=== PATIENT | male | born 1965 | race Caucasian/White ===

== ENCOUNTER 2016-06-08 08:51 | Outpatient (CLI) | payer OTHER | END 2016-06-08 08:52 | disposition home or self-care (01) | DX: M50.321 Other cervical disc degeneration at C4-C5 level (principal); R00.0 Tachycardia, unspecified; R35.0 Frequency of micturition; C81.90 Hodgkin lymphoma, unspecified, unspecified site ==

== ENCOUNTER 2020-03-05 11:10 | Outpatient (CLI) | payer OTHER ==
[2020-03-05 11:46] LABS: BUN - BLOOD UREA NITROGEN 12 mg/dL (6-20); CALCIUM 8.8 mg/dL (8.5-10.3); CARBON DIOXIDE - CO2 27 mmol/L (21-32); CHLORIDE 97 mmol/L (101-111); CHOL/HDL RATIO 3.9 (<5.0); CHOLESTEROL 132 mg/dL; CREATININE 0.7 mg/dL (0.6-1.2); GLUCOSE 98 mg/dL (70-100); HDL CHOLESTEROL 34 mg/dL; LDL CHOLESTEROL,CALCULATED 81 mg/dL; LDL/HDL RATIO 2.4 (<3.6); SODIUM 136 mmol/L (135-145); VLDL CHOLESTEROL 17 mg/dL
[2020-03-06 12:31] LABS: HEPATITIS C ANTIBODY NON-REACTIVE (NON-REACTIVE)
== END 2020-03-05 11:11 | disposition home or self-care (01) ==
LOC: LAB 11:10
PROVIDERS: ATTEND Internal Medicine
DX: I10 Essential (primary) hypertension (principal); Z13.6 Encounter for screening for cardiovascular disorders; Z11.59 Encounter for screening for other viral diseases
CPT/HCPCS: 36415; 80048; 80061; 83721; 86803

== ENCOUNTER 2020-03-26 11:57 | Outpatient (CLI) | payer OTHER ==
[2020-03-26 12:33] LABS: CREATININE 0.7 mg/dL (0.6-1.2)
== END 2020-03-26 11:58 | disposition home or self-care (01) ==
LOC: LAB 11:57
PROVIDERS: ATTEND Internal Medicine
DX: I10 Essential (primary) hypertension (principal)
CPT/HCPCS: 36415; 80048

== ENCOUNTER 2020-03-27 11:03 | Outpatient (CLI) | payer OTHER ==
--- NOTE | 2020-03-27 16:05 | XRAY Report ---
PROCEDURE: Lumbar Spine 2 View INDICATIONS: LOW BACK PAIN TECHNIQUE: 2 views of the lumbar spine were acquired. COMPARISON: None. FINDINGS: Bones: 5 [id number]-[id number]-dotoboj vertebrae are present. There is straightening of normal lumbar lordosis. M oderate multilevel lumbar spondylitic changes throughout the imaged spine with moderate mid and lower lumbar facet arthropathy. No acute vertebral body compression fractures. No suspicious bony lesions . Soft tissues: Overlying bowel gas pattern is normal. No suspicious soft tissue calcifications. IMPRESSION: Lumbar spine without acute radiographic abnormalities. Multilevel lumbar spondylosis. Straightening o f lumbar lordosis likely related to patient positioning and/or concurrent muscle spasms Reviewed by: Chaka Fowler MD on 03/27/2020 3:03 PM [facility] Approved by: Chaka Fowler MD on 03/27/2020 3:03 PM [facility] Station ID: [id number]
== END 2020-03-27 11:04 | disposition home or self-care (01) ==
LOC: DI 11:03
PROVIDERS: ATTEND Internal Medicine
DX: M47.816 Spondylosis without myelopathy or radiculopathy, lumbar region (principal); M47.817 Spondylosis without myelopathy or radiculopathy, lumbosacral region
CPT/HCPCS: 72100

== ENCOUNTER 2020-07-08 08:00 | Outpatient (CLI) | payer OTHER ==
[2020-07-08 10:06] LABS: GLUCOSE, URINE (UA) NEGATIVE (NEGATIVE); KETONES,URINE (UA) NEGATIVE (NEGATIVE); LEUKOCYTE ESTERASE, URINE TRACE (NEGATIVE); NITRITE,URINE NEGATIVE (NEGATIVE); OCCULT BLOOD,URINE NEGATIVE (NEGATIVE); PH,URINE 5.5 PH (5.0-7.5); PROTEIN,URINE NEGATIVE (NEGATIVE); UROBILINOGEN,URINE 0.2 (NORMAL) E.U./dL (NORMAL)
[2020-07-08 10:10] LABS: CLARITY,URINE CLEAR (CLEAR)
[2020-07-08 10:17] LABS: BILIRUBIN,URINE NEGATIVE (NEGATIVE); ICTOTEST,URINE NEGATIVE
[2020-07-08 10:43] LABS: RBC,URINE 0-5 /HPF (0-5); SQUAMOUS EPITHELIAL CELL,UR RARE Squamous (<= Few)
[2020-07-08 10:44] LABS: BACTERIA,URINE Few /HPF (None Seen)
== END 2020-07-08 23:59 | disposition home or self-care (01) ==
LOC: LAB 08:00
PROVIDERS: ATTEND Internal Medicine
DX: R35.0 Frequency of micturition (principal)
CPT/HCPCS: 81001; 87077; 87086; 87181

== ENCOUNTER 2021-06-30 13:13 | Outpatient (CLI) | payer OTHER ==
[2021-06-30 13:41] LABS: CALCIUM 9.2 mg/dL (8.5-10.3); CREATININE 0.8 mg/dL (0.6-1.2); POTASSIUM 4.6 mmol/L (3.5-5.0)
[2021-06-30 20:25] LABS: ESTIMATED AVERAGE GLUCOSE 85 mg/dL (70-100); HEMOGLOBIN A1c% 4.6 % (4.27-6.07)
== END 2021-06-30 13:14 | disposition home or self-care (01) ==
LOC: LAB 13:13
PROVIDERS: ATTEND Internal Medicine
DX: I10 Essential (primary) hypertension (principal); Z13.1 Encounter for screening for diabetes mellitus
CPT/HCPCS: 36415; 80048; 83036

== ENCOUNTER 2021-11-27 10:37 | Outpatient (CLI) | payer OTHER | END 2021-11-27 10:38 | disposition home or self-care (01) | LOC: RT 10:37 | PROVIDERS: ATTEND Internal Medicine | DX: I47.1 Supraventricular tachycardia (principal) | CPT/HCPCS: 93005 ==

== ENCOUNTER 2021-12-01 13:24 | Outpatient (CLI) | payer OTHER ==
--- NOTE | 2021-12-01 15:05 | XRAY Report ---
PROCEDURE: Chest 2 View X-Ray INDICATIONS: Ischemic cardiomyopathy. TECHNIQUE: 2 view(s) of the chest. COMPARISON: None. FINDINGS: Surgical changes and devices: None. Lungs and pleura: No pleural effusions or pneumothorax. Lungs are clear. Mediastinum: Mediastinal contours are normal. Heart size is normal. Bones and chest wall: No suspicious bony abnormalities. Soft tissues appear unremarkable. IMPRESSION: No acute cardiopulmonary process demonstrated radiographically. Reviewed by: Umesh Sahu MD on 12/01/2021 3:04 PM PDT Approved by: Umesh Sahu MD on 12/01/2021 3:04 PM PDT Station ID: [id number]
== END 2021-12-01 13:25 | disposition home or self-care (01) ==
LOC: DI 13:24
PROVIDERS: ATTEND Internal Medicine
DX: I25.5 Ischemic cardiomyopathy (principal)

== ENCOUNTER 2022-04-22 13:11 | Outpatient (CLI) | payer OTHER | END 2022-04-22 13:12 | disposition home or self-care (01) | LOC: RT 13:11 | PROVIDERS: ATTEND Internal Medicine Cardiovascular Disease | DX: I48.92 Unspecified atrial flutter (principal) | CPT/HCPCS: 93005 ==

== ENCOUNTER 2022-08-02 13:36 | Outpatient (CLI) | payer OTHER ==
[2022-08-02 14:32] LABS: BUN - BLOOD UREA NITROGEN 19 mg/dL (6-20); CALCIUM 9.5 mg/dL (8.5-10.3); CARBON DIOXIDE - CO2 25 mmol/L (21-32); CHLORIDE 101 mmol/L (101-111); CHOL/HDL RATIO 2.2 (<5.0); CHOLESTEROL 181 mg/dL; GFR - MDRD 77 (>89); GLUCOSE 96 mg/dL (70-100); HDL CHOLESTEROL 82 mg/dL; LDL CHOLESTEROL,CALCULATED 80 mg/dL; POTASSIUM 5.7 mmol/L (3.5-5.0); SODIUM 135 mmol/L (135-145); TRIGLYCERIDES 95 mg/dL; VLDL CHOLESTEROL 19 mg/dL
[2022-08-02 20:35] LABS: ESTIMATED AVERAGE GLUCOSE 100 mg/dL (70-100); HEMOGLOBIN A1c% 5.1 % (4.27-6.07)
== END 2022-08-02 13:37 | disposition home or self-care (01) ==
LOC: LAB 13:36
PROVIDERS: ATTEND Internal Medicine
DX: I10 Essential (primary) hypertension (principal); I25.5 Ischemic cardiomyopathy; Z13.1 Encounter for screening for diabetes mellitus; Z13.220 Encounter for screening for lipoid disorders
CPT/HCPCS: 36415; 80048; 80061; 83036; 83721

== ENCOUNTER 2023-09-12 10:58 | Outpatient (CLI) | payer OTHER ==
[2023-09-12 11:09] LABS: BASOPHILS # (AUTO) 0.1 10^3/uL (0.0-0.1); EOSINOPHILS # (AUTO) 0.2 10^3/uL (0.0-0.7); EOSINOPHILS % (AUTO) 3.7 %; HCT - HEMATOCRIT 33.6 % (42.0-52.0); HGB - HEMOGLOBIN 11.3 g/dL (14.0-18.0); LYMPHOCYTES # (AUTO) 1.2 10^3/uL (1.5-3.5); LYMPHOCYTES % (AUTO) 22.9 %; MEAN CORPUSCULAR HEMOGLOBIN 34.6 pg (27.0-31.0); MEAN CORPUSCULAR HGB CONC 33.6 g/dL (32.0-36.0); MEAN CORPUSCULAR VOLUME 102.8 fL (80.0-94.0); MONOCYTES # (AUTO) 0.8 10^3/uL (0.0-1.0); MONOCYTES % (AUTO) 16.3 %; NEUTROPHILS # (AUTO) 2.8 10^3/uL (1.5-6.6); NEUTROPHILS % (AUTO) 55.7 %; PLT - PLATELET COUNT 129 10^3/uL (130-450); RED BLOOD COUNT 3.27 10^6/uL (4.70-6.10); RED CELL DISTRIBUTION WIDTH 12.5 % (12.0-15.0); WHITE BLOOD COUNT 5.1 x10^3/uL (4.8-10.8)
[2023-09-12 11:23] LABS: BUN - BLOOD UREA NITROGEN 27 mg/dL (6-20); CALCIUM 9.9 mg/dL (8.5-10.3); CARBON DIOXIDE - CO2 27 mmol/L (21-32); CHLORIDE 97 mmol/L (101-111); CHOL/HDL RATIO 2.1 (<5.0); CHOLESTEROL 157 mg/dL; CREATININE 1.9 mg/dL (0.6-1.3); GFR - MDRD 37 (>89); GLUCOSE 100 mg/dL (74-104); HDL CHOLESTEROL 76 mg/dL; LDL CHOLESTEROL,CALCULATED 56 mg/dL; LDL/HDL RATIO 0.7 (<3.6); POTASSIUM 5.6 mmol/L (3.5-4.5); SODIUM 131 mmol/L (135-145); TRIGLYCERIDES 125 mg/dL (48-352); VLDL CHOLESTEROL 25 mg/dL
[2023-09-12 11:43] LABS: FERRITIN 1124.5 ng/mL (23.9-336.2)
== END 2023-09-12 10:59 | disposition home or self-care (01) ==
LOC: LAB 10:58
PROVIDERS: ATTEND Internal Medicine
DX: I10 Essential (primary) hypertension (principal); I25.5 Ischemic cardiomyopathy; G25.81 Restless legs syndrome
CPT/HCPCS: 36415; 80048; 80061; 82728; 83721; 85025

== ENCOUNTER 2023-09-23 11:51 | Outpatient (CLI) | payer OTHER ==
[2023-09-23 12:10] LABS: BILIRUBIN,URINE SMALL (NEGATIVE); CLARITY,URINE CLEAR (CLEAR); GLUCOSE, URINE (UA) NEGATIVE (NEGATIVE); KETONES,URINE (UA) NEGATIVE (NEGATIVE); LEUKOCYTE ESTERASE, URINE NEGATIVE (NEGATIVE); NITRITE,URINE NEGATIVE (NEGATIVE); OCCULT BLOOD,URINE NEGATIVE (NEGATIVE); PROTEIN,URINE NEGATIVE (NEGATIVE); UROBILINOGEN,URINE 0.2 (NORMAL) E.U./dL (NORMAL)
[2023-09-23 12:20] LABS: ESTIMATED AVERAGE GLUCOSE 97 mg/dL (70-100)
[2023-09-23 12:26] LABS: ALBUMIN 4.3 g/dL (3.2-5.5); ALBUMIN/GLOBULIN RATIO 1.2 (1.0-2.2); BILIRUBIN,TOTAL 1.4 mg/dL (0.2-1.0); CALCIUM 9.7 mg/dL (8.5-10.3); POTASSIUM 4.5 mmol/L (3.5-4.5); TOTAL PROTEIN 7.8 g/dL (6.4-8.9)
[2023-09-23 12:27] LABS: CREATININE,URINE 187.1 mg/dL; MICROALBUM/CREATININE RATIO,UR 6.4 ug/mg (<30.0); MICROALBUMIN,URINE 1.2 mg/dL
== END 2023-09-23 11:52 | disposition home or self-care (01) ==
LOC: LAB 11:51
PROVIDERS: ATTEND Internal Medicine
DX: I10 Essential (primary) hypertension (principal); Z13.1 Encounter for screening for diabetes mellitus; R79.89 Other specified abnormal findings of blood chemistry; E83.119 Hemochromatosis, unspecified
CPT/HCPCS: 36415; 80053; 81001; 81003; 82043; 82570; 83036; 83540; 84466; 87086

== ENCOUNTER 2023-09-23 12:02 | Outpatient (CLI) | payer OTHER | END 2023-09-23 12:03 | disposition home or self-care (01) | LOC: RT 12:02 | PROVIDERS: ATTEND Internal Medicine | DX: E87.5 Hyperkalemia (principal); I10 Essential (primary) hypertension; Z13.1 Encounter for screening for diabetes mellitus; R79.89 Other specified abnormal findings of blood chemistry; E83.119 Hemochromatosis, unspecified | CPT/HCPCS: 36415; 80053; 81001; 81003; 82043; 82570; 83036; 83540; 84466; 87086; 93005 ==

== ENCOUNTER 2023-11-05 12:42 | Outpatient (CLI) | payer OTHER ==
[2023-11-05 12:57] LABS: BASOPHILS % (AUTO) 0.9 %; EOSINOPHILS # (AUTO) 0.1 10^3/uL (0.0-0.7); EOSINOPHILS % (AUTO) 1.3 %; HCT - HEMATOCRIT 35.2 % (42.0-52.0); LYMPHOCYTES # (AUTO) 1.2 10^3/uL (1.5-3.5); LYMPHOCYTES % (AUTO) 24.7 %; MEAN CORPUSCULAR HEMOGLOBIN 35.1 pg (27.0-31.0); MEAN CORPUSCULAR HGB CONC 34.1 g/dL (32.0-36.0); MEAN CORPUSCULAR VOLUME 102.9 fL (80.0-94.0); MONOCYTES # (AUTO) 0.8 10^3/uL (0.0-1.0); MONOCYTES % (AUTO) 16.3 %; NEUTROPHILS # (AUTO) 2.6 10^3/uL (1.5-6.6); NEUTROPHILS % (AUTO) 56.6 %; PLT - PLATELET COUNT 146 10^3/uL (130-450); RED BLOOD COUNT 3.42 10^6/uL (4.70-6.10); RED CELL DISTRIBUTION WIDTH 13.2 % (12.0-15.0); WHITE BLOOD COUNT 4.7 x10^3/uL (4.8-10.8)
[2023-11-05 13:14] LABS: ALBUMIN/GLOBULIN RATIO 1.3 (1.0-2.2); BILIRUBIN,TOTAL 1.1 mg/dL (0.2-1.0); CALCIUM 9.4 mg/dL (8.5-10.3); POTASSIUM 4.9 mmol/L (3.5-4.5); TOTAL PROTEIN 7.2 g/dL (6.4-8.9)
== END 2023-11-05 12:43 | disposition home or self-care (01) ==
LOC: LAB 12:42
PROVIDERS: ATTEND Internal Medicine
DX: R74.8 Abnormal levels of other serum enzymes (principal); E87.5 Hyperkalemia; E87.1 Hypo-osmolality and hyponatremia; R25.3 Fasciculation; D64.9 Anemia, unspecified
CPT/HCPCS: 36415; 80053; 82607; 85025